=== PATIENT | male | born 1975 | race Caucasian/White ===

== ENCOUNTER 2020-12-02 15:55 | Inpatient (IN) | payer SELFPAY ==
[2020-12-02 16:24] VITALS: BP 116/78; PULSE 92; RESP 22; TEMP 36.6; O2SAT 96; BMI 26.3
--- NOTE | 2020-12-02 16:37 | XR_ITS ---
WS: [id number] Exam: XR chest 1V portable [id number] Date/Time of Exam: 12/02/2020 4:44 PM Reason For Exam: reduced breath sounds No priors. There are patchy infiltrates and areas of plaque atelectasis throughout the left lung. The right lung is clear. Normal cardiomediastinal structures. There are fractures of the anterior left second throu gh seventh ribs. Some ribs are stabilized with plate and screw fixation. No pneumothorax is seen. The re is a comminuted fracture of the lateral aspect of the scapula. Fracture probably extends through t he scapular neck. The apex of the scapula is also fractured XR/XR chest 1V portable [id number] IMPRESSION: 1. Patchy infiltrates noted throughout the left lung. This may represent pneumo cordelia or pulmonary contusion. Mild right basal plaque atelectasis. No pneumothora x. 2. Fractures of the second through the seventh anterior left ribs. Some of the ribs are stabilized with plate and screw fixation. Some rib fractures are displ aced. 3. Comminuted fracture of the lateral aspect of the scapula. There is likely a fracture through the scapular neck.
--- NOTE | 2020-12-02 16:37 | CTR_ITS ---
PROCEDURE INFORMATION: Exam: CT Abdomen And Pelvis With Contrast Exam date and time: 12/02/2020 4:51 PM Age: 44 years old Clinical indication: Abdominal pain; Localized; Upper; Prior surgery; Surgery type: Peg tub, ribs; Patient HX: Recent peg tube placement. Peg tube infection, pain around peg tube. ; Additional info: Peg tube infection. Abscess? TECHNIQUE: Imaging protocol: Computed tomography of the abdomen and pelvis with contrast. Radiation optimization: All CT scans at this facility use at least one of these dose optimization techniques: automated exposure control; mA and/or kV adjustment per patient size (includes targeted exams where dose is matched to clinical indication); or iterative reconstruction. Contrast material: OMNI 300; Contrast volume: 95 ml; Contrast route: INTRAVENOUS (IV); COMPARISON: No relevant prior studies available. RADIATION DOSE METRICS: Total DLP (mGy-cm): 1245.5 FINDINGS: Tubes, catheters and devices: Soft tissue inflammatory changes in the anterior superior abdomen within the epigastric region adjacent to the G-tube site. Small focus of extraluminal gas on axial series 2, image 29. Lungs: Bilateral lower lobe atelectasis. Pleural spaces: Trace left pleural effusion. Liver: Normal. No mass. Gallbladder and bile ducts: Normal. No calcified stones. No ductal dilation. Pancreas: Normal. No ductal dilation. Spleen: Normal. No splenomegaly. Adrenal glands: Normal. No mass. Kidneys and ureters: Non simple partially exophytic right renal upper pole lesion with circumscribed margins. Dimensions 3.2 cm x 2.8 cm x 2.3 cm. Homogeneous attenuation with intermediate Hounsfield units. No hydronephrosis of the kidneys. No acute perinephric inflammation. Stomach and bowel: Stomach is decompressed with G-tube in the mid gastric body. No significant gastric wall thickening. Bowel loops are unremarkable with no inflammatory change. No obstruction. Appendix: No evidence of appendicitis. Intraperitoneal space: Unremarkable. No free air. No significant fluid collection. Vasculature: Unremarkable. No abdominal aortic aneurysm. Lymph nodes: Unremarkable. No enlarged lymph nodes. Urinary bladder: Unremarkable as visualized. Reproductive: Unremarkable as visualized. Bones/joints: Multiple left lateral rib fractures fixated with surgical plates and screws. Lumbar spine and pelvis are unremarkable. Soft tissues: Diffuse intercostal soft tissue thickening. No fluid collections within the abdominal wall. The muscular abdominal wall is symmetric and unremarkable. CT/CT abdomen pelvis w con* [id number] IMPRESSION: 1. Epigastric region inflammatory soft tissue changes in the anterior abdominal fat adjacent to the gastrostomy tube site which may represent inflammatory or infectious disease process. There is a single focus of extraluminal air noted. Sequela of an omental infarct not excluded. 2. No significant gastric wall thickening. 3. Indeterminate non simple right renal mass. Most likely hyperdense, proteinaceous cyst, however characterization on this single phase scan is incomplete. 4. Recommend outpatient kidney surveillance with renal ultrasound initially. Alternatively, a multiphasic CT or MRI could be performed utilizing renal protocol without and with intravenous contrast. COMMENTS: Consistent with the [employer]'s Incidental Findings Committee white paper (J Am Anna Radiol 2018): Any incidental renal lesion less than 1 cm or classified as too small to characterize, or any incidental cystic renal lesion characterized as simple-appearing, is likely benign. No follow-up imaging is recommended for these lesions per consensus recommendations based on imaging criteria. Radiation Dose CTDIVOL = (mGy): DLP = 1245.5 (mGy-cm)
--- NOTE | 2020-12-02 16:39 | ECG_ITS ---
[facility] Test Date: 2020-12-02 Pat Name: Carl Lentz Department: Room: Gender: Male Stem Frazer: : 1975 Requested By: Marshall Laguerre Order Number: [id number] Romina MD: DAY CURIEL Measurements Intervals [place] Rate: 87 P: 35 LA: 149 QRS: 53 QRSD: 80 T: 32 QT: 352 QTc: 425 Interpretive Statements SINUS RHYTHM NONSPECIFIC ST & T-WAVE ABNORMALITY No previous ECG available for comparison Electronically Signed On 12-03-2020 20:08:12 SOCIAL WORK PROFESSOR by DAY CURIEL [id number]
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
[2020-12-02 17:30] LABS: Add Urine Microscopic? NO
[2020-12-02 17:33] LABS: Basophils # 0.1 10^3/uL (0.0-0.1); Basophils % 0.4 %; Eosinophils # 0.1 10^3/uL (0.0-0.8); Eosinophils % 0.7 %; Hematocrit 37.3 % (42.0-52.0); Hemoglobin 12.1 g/dL (11.7-16.6); Lymphocytes # 1.4 10^3/uL (0.8-4.8); Lymphocytes % 10.1 %; Mean Corpuscular HGB Conc 32.4 g/dL (30.0-36.0); Mean Corpuscular Hemoglobin 32.6 pg (28.0-34.0); Mean Corpuscular Volume 100.5 fL (80-94); Mean Platelet Volume 9.2 fL (7.4-10.4); Neutrophils % 81.3 %; Nucleated Red Blood Cells % 0 %; Platelet Count 640 10^3/cmm (130-400); Red Blood Count 3.71 10^6/uL (4.1-5.3); Red Cell Distribution Width 12.8 % (12.1-15.1); White Blood Count 13.8 10^3/uL (4.0-10.0)
[2020-12-02] MEDS: HYDROmorphone 1 mg/mL INJ 1 mL 0.5 MG IVP (17:36)
[2020-12-02] MEDS: sodium chloride 0.9% 1,000 ML 999 ML IV (17:36)
[2020-12-02] MEDS: iohexol 300 mg/mL 100 mL Btl IV (17:53)
[2020-12-02 18:05] LABS: Lactate (Lactic Acid level) 1.6 mmol/L (0.5-2.2)
[2020-12-02 18:07] LABS: Alanine Aminotransferase 107 U/L (0-41); Albumin Level 3.2 g/dL (3.5-5.2); Alkaline Phosphatase 231 IU/L (40-130); Anion Gap 16.1 (5-19); Aspartate Amino Transferase 41 U/L (0-40); Blood Urea Nitrogen 17 mg/dL (6-20); Calcium 8.9 mg/dL (8.5-10.5); Carbon Dioxide 27 mmol/L (22-29); Chloride 98 mmol/L (98-107); Glomerular Filtration Rate 123.7 mL/min (90-130); Glucose 96 mg/dL (65-115); Lipase 81 U/L (13-60); Osmolality Calculated 285 mOsm/kg (285-295); Potassium 4.1 mmol/L (3.5-5.1); Sodium 137 mmol/L (136-145); Total Bilirubin 0.3 mg/dL (0.15-1.2); Total Protein 7.2 g/dL (6.6-8.7)
[2020-12-02] MEDS: piperacillin-tazobactam 3.375 GM in sodium chloride 0.9% (plus) 50 ML IV (18:09)
[2020-12-02 18:19] LABS: Amphetamines Screen Urine Negative (Negative); Barbiturates Screen Urine Negative (Negative); Benzodiazepines Screen Urine Negative (Negative); Cocaine Screen Urine Negative (Negative); Opiate Screen Urine Positive (Negative); PCP Screen Urine Negative (Negative); THC Screen Urine Negative (Negative)
[2020-12-02 18:19] LABS: Alcohol Level < 10 mg/dL (0-10)
[2020-12-02] MEDS: vancomycin 1,000 MG in sodium chloride 0.9% 250 ML 250 MG IV (18:45)
[2020-12-02 18:47] LABS: Bilirubin Urine Neg (Negative); Blood Urine Neg (Negative); Glucose Urine UA Norm (Normal); Ketones Urine Negative (Negative); Leukocyte Esterase Urine Negative (Negative); Nitrate Urine Negative (Negative); Protein Urine Neg (Negative); Urine Appearance Clear (CLEAR); Urine Color Yellow (Yellow); Urobilinogen Urine Norm (Negative); pH Urine 5 (5-7)
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
[2020-12-02 22:00] VITALS: BP 148/93; PULSE 86; PULSE 90; RESP 24; O2SAT 96
[2020-12-02 22:53] VITALS: RESP 18
[2020-12-02] MEDS: dextrose 5%-sod chloride 0.45% 1,000 ML 30 ML IV (22:53)
[2020-12-02] MEDS: HYDROmorphone 1 mg/mL INJ 1 mL 0.4 MG IVP (22:53)
[2020-12-02 23:00] VITALS: BP 148/93; PULSE 92; RESP 26
[2020-12-03] VITALS (104 sets, daily range): BP systolic 117–148; BP diastolic 74–93; PULSE 72–103; RESP 17–36; TEMP 36.4–37.2; O2SAT 92–95
[2020-12-03] MEDS: piperacillin-tazobactam 3.375 GM in sodium chloride 0.9% (plus) 50 ML IV ×3 (02:02→17:12)
[2020-12-03] MEDS: HYDROmorphone 1 mg/mL INJ 1 mL 0.4 MG IVP ×3 (02:58→12:07)
[2020-12-03 04:55] LABS: Basophils # 0.1 10^3/uL (0.0-0.1); Basophils % 0.7 %; Eosinophils # 0.2 10^3/uL (0.0-0.8); Eosinophils % 1.1 %; Hematocrit 36.1 % (42.0-52.0); Hemoglobin 11.4 g/dL (11.7-16.6); Lymphocytes # 1.7 10^3/uL (0.8-4.8); Lymphocytes % 13.1 %; Mean Corpuscular HGB Conc 31.6 g/dL (30.0-36.0); Mean Corpuscular Hemoglobin 31.8 pg (28.0-34.0); Mean Corpuscular Volume 100.8 fL (80-94); Mean Platelet Volume 9.4 fL (7.4-10.4); Monocytes # 1.2 10^3/uL (0.2-0.9); Monocytes % 8.9 %; Neutrophils # 9.95 10^3/uL (1.8-7.7); Neutrophils % 75.6 %; Nucleated Red Blood Cells % 0 %; Platelet Count 609 10^3/cmm (130-400); Red Blood Count 3.58 10^6/uL (4.1-5.3); Red Cell Distribution Width 12.9 % (12.1-15.1); White Blood Count 13.2 10^3/uL (4.0-10.0)
[2020-12-03 05:12] LABS: Anion Gap 11.8 (5-19); Blood Urea Nitrogen 12 mg/dL (6-20); Calcium 8.7 mg/dL (8.5-10.5); Carbon Dioxide 26 mmol/L (22-29); Chloride 103 mmol/L (98-107); Glomerular Filtration Rate 147.8 mL/min (90-130); Glucose 105 mg/dL (65-115); Osmolality Calculated 284 mOsm/kg (285-295); Potassium 3.8 mmol/L (3.5-5.1); Sodium 137 mmol/L (136-145)
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
--- NOTE | 2020-12-03 05:50 | PC.NURSE ---
NURSE NOTE: SHIFT SUMMARY: PT PRESENTED TO UNIT AT APPROXIMATELY 2145 LAST EVENING. PT IS ALERT AND ORIENTED X4; MOVES ALL EXTREMITIES AND FOLLOWS COMMANDS. PT C/O CONSTANT SHARP PAIN IN LEFT SHOULDER/RIB AREA = 8/10. PAIN MEDICATIONS GIVEN ORDERED AND WERE EFFECTIVE PER PATIENT BUT ONLY FOR ABOUT 2 HOURS. DISCUSSED WITH PATIENT POSSIBILITY OF SPEAKING WITH PHYSICIAN TODAY ABOUT A LONGER ACTING PAIN MEDICATION. GAUZE DRESSING PLACED AROUND PEG SITE. SMALL AMOUNT OF YELLOW DRAINAGE NOTED TO SITE. PT VOIDES PER URINAL. OUTPUT ADEQUATE. NPO SINCE MIDNIGHT ORDERED. CURRENTLY RESTING WITH EYES CLOSED; RESP EVEN AND NON LABORED. ALL VS AND ASSESSMENTS CHARTED.
--- NOTE | 2020-12-03 06:38 | PC.NURSE ---
NURSE NOTE; CONSULT FROM DR. HESS. DR. HESS IN AT THIS TIME TO ASSESS PT PEG TUBE SITE. ORDERED SITE TO BE DRESSED WITH ABD GAUZE AND TAPE AND TO BE CONNECTED TO DRAINAGE BAG PER GRAVITY. BOTH DONE AT THIS TIME. PT 'S PEG TUBE FLUSH WITH SKIN AT PRESENT. SLIGHT REDNESS NOTED AROUND SITE ALONG WITH WARMTH TO TOUCH. DRAINAGE AROUND SITE IS CREAM COLORED, PUS LIKE DRAINAGE/MODERATE AMOUNT. NEW DRESSING IN PLACE. NO NEW DRAINAGE NOTED. PT C/O PAIN AROUND PEG SITE. WILL CONTINUE TO MONITOR.
--- NOTE | 2020-12-03 08:00 | FL_ITS ---
WS: [id number] Exam: FL barium swallow modifd [id number] Date/Time of Exam: 12/03/2020 8:59 AM Reason For Exam: Oral dysphagia Fluoroscopy time: 3.5 minutes Modified barium swallow was performed in conjunction with the speech therapy department. The patient tolerated thin liquid, nectar consistency and solid barium foodstuffs without complicatio n. There was no evidence of the aspiration or penetration into the laryngeal inlet. Swallowing functi on at the level of the oropharynx appeared normal. Esophageal motility appeared normal. FL/FL barium swallow modifd [id number] IMPRESSION: 1. Unremarkable modified barium swallow. There was no indication of aspiration, penetration or other significant finding.
--- NOTE | 2020-12-03 09:11 | PC.CHAP ---
Pastoral Care Encounter/Spiritual Assessment Type of Contact [] Declined director of corporate marketing visit [] Patient/Family/Request visit [] Outpatient visit [] Follow-up visit [] Physician referral [] Code/Alert [x] Routine visit [] Staff referral [] Actively dying [] Patient sleeping [] Family support [] [] Out of room [] Palliative care [] [] Receiving care in room [] Pre-surgical visit [] Trauma [] Long length of stay [] ICU visit [] Other: Relational/Emotional Strength [] Patient feels connected with others/family/visitors/staff [] Distress [] Loneliness/isolation [] Abandonment Spirituality of Patient [] Person of Rosalinda [] Attends Bahai of their Rosalinda [] Believes in Prayer [] Reads Bible or Rastafarian materials [] There are Spiritual issues to be addressed Logistics Project Manager Interventions [x] Prayer [] Active listening [] Non-anxious presence [] Spiritual/emotional support [] Crisis/trauma care [] Spiritual counseling [] Bereavement support [] Provided bereavement packet [] Provided Bible/devotional materials [] Provided toy/stuffed animal, coloring book to patient or family member [] Provided Communion [] Anointing/[place] [] Salvation [x] Completed spiritual assessment [] Other: Impact on Illness or Injury [] Angry [] Fearful [] Anxious [] Often cries [] Exhaustion [] Unable to work [] Unable to attend anglican [] Unable to walk/stand [] Unable to read [] Unable to drive [] Unable to eat/drink [] Unable to sleep [] Unable to be with family [] Patient intubated [] Other: Summary Time spent with patient
[2020-12-03] MEDS: sennosides-docusate Tablet 1 TAB PO (09:57)
[2020-12-03] MEDS: pantoprazole DR 40 mg Tablet PO (09:57)
--- NOTE | 2020-12-03 11:27 | PM.PN ---
Subjective Subjective: Interval history: Patient is excited to eat. He is asking for better pain control that last more than 2 hours. I told him now that he can eat he will be able to take an oral medication that will last longer. He is asking to go home however I explained that he needs observation for 24 hours and continued antibiotics Vitals/I&O/Wt Last Vital Signs Temp 97.9 F 12/03/20 07:35 Pulse 79 12/03/20 07:35 Resp 30 H 12/03/20 07:35 BP 128/74 12/03/20 07:35 Pulse Ox 92 12/03/20 07:35 12/02/20 12/03/20 12/03/20 22:59 06:59 14:59 Intake Total 170 / 170 240 / 410 50 / 50 Output Total 450 / 450 650 / 1100 1075 / 1075 Balance -280 / -280 -410 / -690 -1025 / -1025 Weight last 48 hrs Weight 85.729 kg Physical Exam Const: GENERAL APPEARANCE: well developed, anxious and well hydrated Resp: COMMON NORMALS: normal respiratory effort and clear to auscultation bilaterally AUSCULTATION: clear to auscultation bilaterally GI: INSPECTION: Yes other (See below) PALPATION: Yes Tenderness to palpation present (GI) OTHER: Patient with PEG tube. A large area of abdomen has an dressing with foul smelling donnelly to yellow discharge. He is very very tender to touch his abdomen has edema but I do not appreciate any significant erythema. Extremity: COMMON NORMALS: no calf tenderness and no pedal edema Data : 12/03/20 04:21 12/03/20 04:21 Micro: Microbiology 12/02/20 17:34 Blood Culture - Preliminary Blood SPECIMEN COLLECTED 12/02/20 17:32 Blood Culture - Preliminary Blood SPECIMEN COLLECTED A&P Assessment and plan (1) Infection of PEG site: Patient is on IV antibiotics. continue wound dressing changes. I discussed patient's case with surgeon Dr parada. The best case scenario is for the patient to be able to eat. Fortunately the patient has passed his modified barium swallow with a regular diet. Note he will need to drink liquids after every few bites. This was explained to the patient however I am concerned he is a bit impulsive. Anyhow the plan with the surgery team at this point is to continue antibiotics overnight if the patient remains stable can discharge to follow-[facility] with his [facility] for definitive therapy of the infection. Recommendation is for visualization of the PEG tube within the stomach and internal closure. That decision is best made by his surgeon that placed the PEG tube. Status: Acute (2) Pain around PEG tube site: Patient has been placed on scheduled oxycodone 10 mg every 6 hours and Celebrex loading dose of 400 mg then 200 mg twice daily for pain control Status: Acute (3) Hematoma of abdominal wall: Will monitor and control pain. Status: Acute Attestations Medical Necessity Statement*: Severe PEG tube infection with cough profuse drainage requiring frequent dressing changes. Coding Level of Care Code Acute Shearing Machine Feeder for Chg Fwd Exam Expanded Problem Focused Diagnoses Infection of PEG site K94.22 Pain around PEG tube site T85.848A Hematoma of abdominal wall S30.1XXA
[2020-12-03] MEDS: oxyCODONE 5 mg IR Tab/Cap 10 MG PO ×3 (12:08→23:10)
[2020-12-03] MEDS: CELEcoxib 200 mg Capsule 400 MG PO (12:14)
[2020-12-03] MEDS: vancomycin 1,500 MG/300 ML PIGGYBACK 200 MG IV (12:14)
[2020-12-03] MEDS: vancomycin 1,000 MG in sodium chloride 0.9% 250 ML 250 MG IV (20:51)
[2020-12-03] MEDS: dextrose 5%-sod chloride 0.45% 1,000 ML 30 ML IV (20:51)
[2020-12-03] MEDS: CELEcoxib 200 mg Capsule PO (21:08)
[2020-12-04] VITALS (59 sets, daily range): BP systolic 117–129; BP diastolic 69–85; PULSE 62–101; RESP 17–30; TEMP 36.7–37; O2SAT 91–95
[2020-12-04] MEDS: piperacillin-tazobactam 3.375 GM in sodium chloride 0.9% (plus) 50 ML IV ×2 (02:10→09:12)
[2020-12-04 05:12] LABS: Basophils # 0.1 10^3/uL (0.0-0.1); Basophils % 0.8 %; Eosinophils # 0.3 10^3/uL (0.0-0.8); Eosinophils % 2.8 %; Hematocrit 37.1 % (42.0-52.0); Lymphocytes # 1.7 10^3/uL (0.8-4.8); Lymphocytes % 14.1 %; Mean Corpuscular HGB Conc 32.3 g/dL (30.0-36.0); Mean Corpuscular Hemoglobin 32.4 pg (28.0-34.0); Mean Corpuscular Volume 100.3 fL (80-94); Mean Platelet Volume 9.3 fL (7.4-10.4); Monocytes # 1.1 10^3/uL (0.2-0.9); Neutrophils # 8.56 10^3/uL (1.8-7.7); Nucleated Red Blood Cells % 0 %; Platelet Count 564 10^3/cmm (130-400); Red Cell Distribution Width 12.9 % (12.1-15.1); White Blood Count 11.9 10^3/uL (4.0-10.0)
[2020-12-04 05:27] LABS: Alanine Aminotransferase 69 U/L (0-41); Albumin Level 2.9 g/dL (3.5-5.2); Alkaline Phosphatase 210 IU/L (40-130); Anion Gap 10.6 (5-19); Aspartate Amino Transferase 24 U/L (0-40); Blood Urea Nitrogen 15 mg/dL (6-20); Calcium 8.9 mg/dL (8.5-10.5); Carbon Dioxide 29 mmol/L (22-29); Chloride 102 mmol/L (98-107); Globulin 3.8 g/dL (1.3-4.6); Glucose 99 mg/dL (65-115); Osmolality Calculated 285 mOsm/kg (285-295); Potassium 4.6 mmol/L (3.5-5.1); Sodium 137 mmol/L (136-145); Total Bilirubin 0.3 mg/dL (0.15-1.2); Total Protein 6.7 g/dL (6.6-8.7)
[2020-12-04] MEDS: vancomycin 1,000 MG in sodium chloride 0.9% 250 ML 250 MG IV (06:20)
[2020-12-04] MEDS: oxyCODONE 5 mg IR Tab/Cap 10 MG PO ×2 (06:20→12:05)
--- NOTE | 2020-12-04 07:45 | P.PN_ITS ---
Subjective Subjective: Interval history: Per nursing staff patient tolerating p.o. intake and minimal discharge around the PEG tube insertion site. Patient passed his modified barium swallow yesterday and has been started on p.o. intake Trending down in leukocytosis. Per patient's input feels a whole lot better and he is tolerating well p.o. intake Continues to have discharge around the PEG tube insertion site yet controlled Vitals/I&O/Wt Last Vital Signs Temp 98.2 F 12/04/20 07:32 Pulse 82 12/04/20 07:32 Resp 18 12/04/20 07:32 BP 121/83 12/04/20 07:32 Pulse Ox 91 12/04/20 07:32 12/03/20 12/04/20 12/04/20 22:59 06:59 14:59 Intake Total 949 / 1444.417 300 / 1744.417 250 / 250 Output Total 300 / 1375 400 / 1775 Balance 649 / 69.417 -100 / -30.583 250 / 250 Weight last 48 hrs Weight 189 lb Physical Exam Narrative: EXAM NARRATIVE: Patient is conscious alert oriented X3 BMI 26.4 Head nd neck examination PERRLA no masses no cervical lymphadenopathy no jaundice Abdomen insertion site of the PEG is less tender,some purulent discharge apprec iated around the PEG site insertion yet controlled,nondistended soft no organomegaly guarding or rigidity/no signs of peritonitis. Gastric contents appreciated per PEG tube Extremities no cyanosis no clubbing no edema Data : 12/04/20 04:52 12/04/20 04:52 Micro: Microbiology 12/02/20 17:34 Blood Culture - Preliminary Blood NEGATIVE TO DATE 12/02/20 17:32 Blood Culture - Preliminary Blood NEGATIVE TO DATE A&P Assessment and plan (1) Infection of PEG site: Per bedside examination there is no drainable abscess yet patient does have some purulent discharge around the PEG tube site. No signs of sepsis Continue antimicrobial therapy, and be switched to oral antibiotics for 10 days after discharge as a broad-spectrum Dressing change as needed Encourage the patient to have a follow-up with his surgeon the sooner he gets out from the hospital once he meets criteria. Optimize nutrition We will continue coordinating with hospitalist service Thank you for consulting general surgery to participate taking care Mr. Lentz Status: Acute Attestations Medical Necessity Statement*: Inpatient hospitalization for antimicrobial therapy and feeding tube care. Time Spent in Patient Care: (>than 50% of time spent in counselling and/or direct pt care on unit) . Coding Level of Care Code Acute Supervisor Heavy Equipment for Luis Daniel Leonard Diagnoses Infection of PEG site K94.22
[2020-12-04] MEDS: CELEcoxib 200 mg Capsule PO (09:13)
[2020-12-04] MEDS: sennosides-docusate Tablet 1 TAB PO (09:13)
[2020-12-04 12:22] LABS: Vancomycin Trough 15.3 ug/mL (10-15)
--- NOTE | 2020-12-04 13:43 | PM.DCS ---
Discharge Providers Date of Admission: 12/02/20 20:00 Date of Discharge: December 04, 2020 Attending Provider at Admission: Parvin Valencia MD Attending Provider at Discharge: Marcos Escobedo DO Diagnoses at Discharge Discharge Diagnosis (1) Infection of PEG site: Status: Acute Reason for Visit Reason for Visit: INFECTED PEG TUBE Hospital Course Hospital Course Patient was admitted after presenting with abdominal pain abdominal swelling and PEG tube site purulent discharge. CT revealed a hematoma around the PEG tube site no discrete abscess was identified. The patient was admitted placed n.p.o. and given IV antibiotics for infection. Surgery was consulted. Because the PEG tube is only 10 to 14 days old and no permanent track was made, the PEG tube cannot be pulled. And modified barium swallow was obtained and the patient's swallow was effective he was given a regular diet with instructions to take frequent sips of water. A catheter was placed for the PEG tube to capture the discharge and output. Today he still has purulent discharge at the PEG tube site the volume has decreased since attaching the PEG tube site to drainage. His pain is markedly improved as well as his white count has decreased. He will be discharged home on oral antibiotics consisting of Augmentin 875 mg twice daily and Bactrim DS 1 p.o. twice daily. The patient is instructed to follow-up with his primary care and the surgeon, Dr. Estrada, from [facility] in [place]. Physical Exam Narrative: EXAM NARRATIVE: In general the patient appears in better spirits, his anxiety is less. He is smiling today asking to go home. He states his pain is better. Abdomen: Less edema, significantly less tender. Purulent and somewhat bloody discharge at PEG tube site. The dressing is saturated but has not been changed yet today. Significant output into the drainage catheter. Discharge Data Data Completed and Pending: Completed Studies During Hospitalization Category Date Time Status CT abdomen pelvis w con* 05010 Urge nt Cat Scan 12/02/20 16:[address] chest wo con 7 1250 Stat Cat Scan 12/02/20 16:59 Completed [place] barium swallow modifd 55087 Rout ine Exams 12/03/20 08:00 Completed XR chest 1V jimi ble 47897 Urgent Exams 12/02/20 16:37 Completed Pending at discharge Category Date Time Status Blood Culture Sta t Lab 12/02/20 17:34 Results Labs from last 24 hours 12/04/20 12/04/20 12/04/20 11:35 04:52 04:52 WBC 11.9 H RBC 3.70 L Hgb 12.0 Hct 37.1 L MCV 100.3 H MCH 32.4 MCHC 32.3 RDW 12.9 Plt Count 564 H MPV 9.3 Neut % (Auto) 72.0 Lymph % (Auto) 14.1 [place] % (Auto) 9.0 Eos % (Auto) 2.8 Baso % (Auto) 0.8 Neut # (Auto) 8.56 H Lymph # (Auto) 1.7 [place] # (Auto) 1.1 H Eos # (Auto) 0.3 Baso # (Auto) 0.1 Nucleated RBC % (a uto) 0 Nucleated RBCs # 0.0 Sodium 137 Potassium 4.6 Chloride 102 Carbon Dioxide 29 Anion Gap 10.6 BUN 15 Creatinine 0.8 GFR Calculation 106.0 Glucose 99 Calculated Osmolal ity 285 Calcium 8.9 Total Bilirubin 0.3 AST 24 ALT 69 H Alkaline Phosphata se 210 H Total Protein 6.7 Albumin 2.9 L Globulin 3.8 Vancomycin Trough 15.3 H Vitals: Last Vital Signs Temp 98.1 F 12/04/20 13:08 Pulse 101 H 12/04/20 13:08 Resp 22 H 12/04/20 13:08 BP 129/85 12/04/20 13:08 Pulse Ox 91 12/04/20 13:08 Discharge Plan Discharge Patient Disposition: Home Condition: Stable Prescriptions: New celecoxib 200 mg Capsule 200 mg PO Q12H Qty: 30 RF: 0 levetiracetam 100 mg/mL Solution 500 mg PO BID Qty: 60 RF: 0 Augmentin 875-125 mg tablet 1 tab PO Q12H Qty: 14 RF: 0 Bactrim DS 800-160 mg tablet 1 tab PO Q12H 14 Days Qty: 28 RF: 0 Continued Miralax 17 gram Powder In Packet 17 g PO DAILY RF: 0 ergocalciferol (vitamin D2) 1,250 mcg (50,000 unit) capsule 1,250 mcg PO Q7D RF: 0 baclofen See Rx Instructions .ROUTE .COMPLEX RF: 0 omeprazole 20 mg Tablet,Delayed Release (Dr/Ec) 40 mg PO BID RF: 0 Discontinued levetiracetam 100 mg/mL solution 100 mg feeding tube BID RF: 0 Discharge Orders: Discharge Order (Routine); Ordered 12/04/20 Ordered By: Marcos Escobedo Referrals: Dr. Estrada [Other] ([facility] (Dr. Estrada's office) will be calling to set a post surgery followup. If you don't hear from them by next week, please give them a call. Thank you) Sindhu Astorga PA [Staff Physician] - 12/11/20 1:45 pm (You have a hospital followup at [facility] with Sindhu Astorga on December 11 at 1:45pm) Discharge Diet: Regular Discharge Activity: Increase activity as tolerated Patient Instructions: Sulfamethoxazole/Trimethoprim (By mouth), Amoxicillin/Clavulanate Potassium (By mouth), Celecoxib (By mouth), Levetiracetam (By mouth) Activity Restrictions/Additional Instructions: Diet instructions: Take a few bites of food followed by a few sips of water. Wound. Keep wound clean and dry. Change dressing when saturated. Keep catheter attached and drain into stool when full. Discharge Attestations Time Spent in Discharge Care*: greater than 30 min Specific Discharge Activities: educating patient, documenting/other paperwork and evaluating patient/reviewing data Quality Metrics Clinical Quality Measures During this hospital stay, did patient experience: None Coding Level of Care Code Acute Newspaper Photojournalist for Luis Daniel Leonard Diagnoses Infection of PEG site K94.22
== END 2020-12-04 13:41 | disposition home or self-care (01) | DRG 920 ==
LOC: ER 16:37 → CSU 20:24
PROVIDERS: Surgery; Admitting Provider Internal Medicine; Emergency Provider Family Medicine; PCP Physician Assistant; Visit Provider Internal Medicine
DX: T85.79XA Infection and inflammatory reaction due to other internal prosthetic devices, implants and grafts, initial encounter (principal); L76.32 Postprocedural hematoma of skin and subcutaneous tissue following other procedure; Y73.1 Therapeutic (nonsurgical) and rehabilitative gastroenterology and urology devices associated with adverse incidents; T85.848A Pain due to other internal prosthetic devices, implants and grafts, initial encounter; N28.9 Disorder of kidney and ureter, unspecified
CPT/HCPCS: 36415; 71045; 71250; 74177; 74230; 80048; 80053; 80202; 80306; 80307; 81003; 83605; 83690; 85025; 87040; 92611; 93005; 96365; 96367; 96375; 99285; J1170; J2543; J3370; J7030; J7050; J7799; Q9967